=== PATIENT | male | born 1980 | race Caucasian/White ===

== ENCOUNTER 2018-05-31 12:05 | Outpatient (CLI) | payer OTHER ==
--- NOTE | 2018-05-31 14:58 | MRI ---
MRI RIGHT KNEE: 05/31/2018 PROVIDED CLINICAL HISTORY: Right knee pain. FINDINGS: The anterior cruciate ligament, posterior cruciate ligament, medial collateral ligament, and lateral collateral ligament complex demonstrate an intact MR appearance, as does the extensor mechanism. The medial and lateral menisci demonstrate no definite evidence for tear. There is an abnormally thi ckened and T2 hyperintense appearance to the posterior-medial joint capsule, at its meniscal attachme nt with the posterior horn of the medial meniscus, suggesting capsular tearing or medial meniscocapsu lar separation. No focal articular cartilage defect is apparent. There is a small knee joint effusion. There is a circumscribed, mass-like area of signal alteration present within the medial aspect of the distal femoral metaphyseal region. This measures approximately 2 cm in craniocaudal dimension and 1 .5 x 1.7 cm in greatest transverse dimensions. This demonstrates T1 signal intensity, isointense to slightly hyperintense to skeletal muscle, and demonstrates T2 hyperintensity, heterogeneously hyperin tense to skeletal muscle. This immediately underlies the medial femoral metaphyseal cortex, without evidence for cortical effacement or cortical breakthrough. Portions of this lesion demonstrate T1 an d T2 hypointense (sclerotic) margins, though the medial aspects of this lesion do not appear scleroti c by MR. There is no evidence for surrounding marrow edema or adjacent soft tissue mass. Regional m arrow signal appears otherwise unremarkable. IMPRESSION: 1. Abnormal appearance to the posterior-medial joint capsule, that may reflect partial tearing or me dial meniscocapsular separation meniscocapsular separation. 2. Lesion within the distal femoral metaphyseal region, medially, the Magnetic resonance features of which are not specific. This could reflect a chondroid lesion. Radiographic correlation is recomme nded. If the patient's pain could be attributable to this lesion, consider further assessment. POS: [facility]
== END 2018-05-31 12:06 | disposition home or self-care (01) ==
LOC: SCSMRI 12:05
PROVIDERS: ATTEND Orthopaedic Surgery
DX: M23.311 Other meniscus derangements, anterior horn of medial meniscus, right knee (principal); M25.861 Other specified joint disorders, right knee